=== PATIENT | male | born 2000 | race Two or more races ===

== ENCOUNTER 2024-09-26 17:02 | Emergency (ER) | payer MEDICAID, SELFPAY ==
[2024-09-26 17:25] VITALS: BP 133/80; PULSE 65; RESP 18; TEMP 36.6; O2SAT 99; BMI 27.3
--- NOTE | 2024-09-26 17:37 | XR_ITS ---
Examination: Abdomen sonogram, Limited Date and time of exam: September 26, 2024 1747 hrs. Indications: Epigastric pain beginning one month ago Technique: Real-time humphries scale transabdominal sonographic images of the upper abdomen obtained. Findings: Normal gallbladder Normal common bile duct 0.4 cm Pancreatic head 2.4 cm Liver 12.6 cm fatty infiltration no focal liver lesions Normal hepatopedal portal venous flow Patent IVC Impression: Normal gallbladder Mild hepatomegaly fatty liver
--- NOTE | 2024-09-26 17:38 | PD.EDRME ---
Rapid Medical Screening Exam RME Arrival date/time: 09/26/24 17:02 23-year-old male reports with complaints of epigastric abdominal pain for several weeks Chief Complaint: Abdominal Pain Time Seen by Provider: 09/26/24 17:05 Vital signs: Vital Signs Temperature 97.8 F 09/26/24 17:25 Pulse Rate 65 09/26/24 17:25 Respiratory Rate 18 09/26/24 17:25 Blood Pressure 133/80 H 09/26/24 17:25 Pulse Oximetry (%) 99 09/26/24 17:25 Oxygen Delivery Method Room Air 09/26/24 17:25
[2024-09-26 18:36] LABS: Basophils % (Auto) 0 % (0-2.5); Eosinophils # (Auto) 0.1 Thou/mm3 (0.0-0.5); Eosinophils % (Auto) 1 % (0-10); Hematocrit 46.5 % (41.0-53.0); Hemoglobin 15.2 g/dL (13.5-16.0); Immature Granulocytes % (Auto) 0 % (0-0); Immature Granulocytes Auto 0.01 Thou/mm3 (0.00-0.00); Lymphocytes # (Auto) 2.5 Thou/mm3 (1.0-4.8); Lymphocytes % (Auto) 32 % (10-50); Mean Corpuscular HGB Conc 32.7 g/dl (31.0-37.0); Mean Corpuscular Hemoglobin 26.7 pg (25.0-35.0); Mean Corpuscular Volume 82 fL (80-100); Monocytes # (Auto) 0.4 Thou/mm3 (0.0-0.8); Monocytes % (Auto) 5 % (0-12); Neutrophils # (Auto) 4.9 Thou/mm3 (1.8-7.7); Neutrophils % (Auto) 61 % (37-80); Nucleated Red Blood Cell % 0 /100 WBC (0); Platelet Count 289 Thou/mm3 (140-440); RDW Standard Deviation 40.2 fL (35.1-43.9); Red Blood Count 5.69 Miln/mm3 (4.50-5.90)
[2024-09-26 18:58] LABS: Alanine Aminotransferase 10 U/L (10-49); Albumin, Serum 4.8 gm/dL (3.5-5.0); Albumin/Globulin Ratio 1.5 (1.2-2.2); Alkaline Phosphatase 89 U/L (46-116); Anion Gap 8 (7-16); Aspartate Amino Transferase 18 U/L (0-34); BUN/Creatinine Ratio 15 Ratio (12-20); Bilirubin,Total 0.4 mg/dL (0.3-1.2); Blood Urea Nitrogen 12 mg/dL (9-23); Calcium 9.6 mg/dL (8.3-10.6); Calcium (Corrected) 9.6 mg/dL (8.5-10.1); Carbon Dioxide 27.1 mMol/L (20.0-31.0); Chloride 106 mMol/L (98-107); Creatinine (Component) 0.8 mg/dL (0.6-1.3); Estimated Creatinine Clearance 147.5 mL/min (>60); Globulin 3.3 gm/dL (2.3-3.5); Glucose 95 mg/dL (74-106); Lipase 34 U/L (12-53); Osmolality,Calculated 280 (275-295); Potassium 3.6 mMol/L (3.4-5.1); Sodium 141 mMol/L (136-145); Total Protein 8.1 gm/dL (5.7-8.2); eGFR > 60 See Note
[2024-09-26] MEDS: KETOROLAC INJ 60 MG/2 ML VIAL 30 MG IM (20:18)
[2024-09-26 20:44] LABS: Collection Type, Urine Clean Catch; Squamous Epithelial Cell,Urine 0 /hpf (0-5)
[2024-09-26 20:48] LABS: Bilirubin,Urine Negative (Negative); Blood,Urine Negative (Negative); Clarity,Urine Clear (Clear/Hazy); Color,Urine Lt-Yellow (Lt Yel-Yel); Culture Indicated,Urine Not Indicated; Glucose, Urine Negative (Negative); Ketones,Urine Negative (Negative); Leukocyte Esterase,Urine Negative (Negative); Nitrite,Urine Negative (Negative); PH,Urine 5.5 (5.0-7.0); Protein,Urine Negative (Neg - Trace); RBC,Urine 4 /hpf (0-3); Specific Gravity,Urine 1.023 (1.001-1.035); Urobilinogen,Urine Negative mg/dL (0.0-1.0); WBC,Urine 8 /hpf (0-5)
[2024-09-26 21:08] VITALS: BP 129/84; PULSE 67; RESP 17; TEMP 36.9; O2SAT 99
--- NOTE | 2024-09-26 21:11 | EDNOTE_ITS ---
ED Abdominal Pain RME/HPI General Chief Complaint: Abdominal Pain Stated complaint: ABD PAIN FOR MANY YEARS, TODAY IS WORSE Time seen by provider: 09/26/24 17:05 Arrival date/time: 09/26/24 17:02 23-year-old male with no significant past medical history other than everyday smoker presents emergency department complaining of intermittent diffuse abdominal pain that he has had for several years but reports today in the morning was severe and prompted him to come in. Patient denies any fever, chills, vomiting, diarrhea, or any other associated symptom. Source: patient Mode of arrival: ambulatory Limitations: no limitations RME / HPI RME / HPI narrative: 09/26/24 17:02 23-year-old male reports with complaints of epigastric abdominal pain for several weeks Related Data Previous Rx's ?Medication ?Instructions ?Recorded acetaminophen 500 mg capsule 500 mg PO Q6H PRN pain #3 0 caps 09/26/24 Allergies Allergy/AdvReac Type Severity Reaction Status Date / Time No Known Allergies Allergy Verified 09/26/24 17:06 Review of Systems Review of Systems Systems Reviewed: All systems reviewed, normal except as documented Constitutional Constitutional: Reports system reviewed and no additional complaints, except as documented, Denies body ache(s), Denies chills and Denies fever(s) Eyes Eyes: Reports system reviewed and no additional complaints, except as documented and Denies change in vision ENT Ears, Nose, Mouth, and Throat: Reports system reviewed and no additional complaints, except as documented, Denies disequilibrium, Denies dizziness, Denies sore throat and Denies vertigo Cardiovascular Cardiovascular: Reports system reviewed and no additional complaints, except as documented, Denies chest pain and Denies dyspnea Respiratory Respiratory: Reports system reviewed and no additional complaints, except as documented, Denies chest congestion, Denies cough and Denies dyspnea Gastrointestinal Gastrointestinal: Reports system reviewed and no additional complaints, except as documented, Reports abdominal pain, Denies nausea and Denies vomiting Musculoskeletal Musculoskeletal: Reports system reviewed and no additional complaints, except as documented, Denies abnormal gait and Denies arthralgias Integumentary/Breasts Skin/Breast: Reports system reviewed and no additional complaints, except as documented, Denies erythema, Denies rash and Denies wounds Neurologic Neurologic: Reports system reviewed and no additional complaints, except as documented, Denies abnormal gait, Denies disequilibrium, Denies dizziness and Denies vertigo Past Medical History Social History SMOKING STATUS: Current every day smoker ED Exam General Limitations: Present no limitations General appearance: Present alert and in no apparent distress Head Head exam: Present atraumatic Eye Eye exam: Present normal appearance, PERRL and EOMI ENT ENT exam: Present normal exam, normal oropharynx and mucous membranes moist Neck Neck exam: Present normal inspection, full ROM and trachea midline Chest Chest inspection: Present normal inspection and symmetric chest wall rise Respiratory Respiratory exam: Present normal lung sounds bilaterally Cardiovascular Cardiovascular exam: Present regular rate, normal rhythm and normal heart sounds Abdominal Exam Abdominal exam: Present soft and normal bowel sounds; Absent tenderness, guarding, Lee's sign or tenderness at McBurney's Point Extremities Exam Extremities exam: Present normal inspection and full ROM Back Exam Back exam: Present normal inspection and full ROM Neurological Exam Neurological exam: Present alert, oriented X3 and CN II-XII intact Psychiatric Psychiatric exam: Present normal affect and normal mood Skin Skin exam: Present warm, dry, intact and normal color Course Quality Measures none Orders Category Date Time Status US abdomen limited Stat Exams 09/26/24 17:37 Completed CBC Stat Lab 09/26/24 17:59 Completed CMP [Comprehensive Metabolic Panel] Stat Lab 09/26/24 17:59 Completed Lipase Stat Lab 09/26/24 17:59 Completed UA, C/S IF [Urinalysis, C/S if Indicated] Stat Lab 09/26/24 20:19 Completed Ketorolac Inj [Toradol Inj] Med 09/26/24 18:49 Discontinued 30 mg IM X1 ONE Vital Signs Vital signs: Vital Signs Temperature 97.8 F 09/26/24 17:25 Pulse Rate 65 09/26/24 17:25 Respiratory Rate 18 09/26/24 17:25 Blood Pressure 133/80 H 09/26/24 17:25 Pulse Oximetry (%) 99 09/26/24 17:25 Oxygen Delivery Method Room Air 09/26/24 17:25 99% RA WNL Abdominal Pain MDM MDM Narrative MDM Narrative:: 23-year-old male with no significant past medical history other than everyday smoker presents emergency department complaining of intermittent diffuse abdominal pain that he has had for several years but reports today in the morning was severe and prompted him to come in. Patient denies any fever, chills, vomiting, diarrhea, or any other associated symptom. CBC was unremarkable for any leukocytosis. CMP was unremarkable for any elevated LFTs or gross electro abnormalities. Ultrasound of abdomen was unremarkable as well. At time of exam patient is abdomen soft no tenderness at McBurney's point and negative Lee sign. Patient reports pain medication is completely resolved symptoms. Patient stable for discharge directed to follow-up with primary care provider return to emergency department for any worsening symptoms or as needed. Patient data External records reviewed:: None Clinical information provided by:: patient Social determinants that could affect healthcare access:: none Patient has the following chronic illnesses:: none How is presenting disease/condition affected by chronic disease/condition?: no chronic disease Evaluation data The following diagnostics were reviewed and interpreted by me:: lab results and radiology exam(s) Lab and/or radiology exams considered but not ordered:: Ordered Interpretation Summary: Interpreted by me Medications / Prescriptions Medications or Prescriptions considered but not ordered:: Ordered Medication administrations:: Medication Administration History Discontinued Medications Ketorolac Tromethamine (Ketorolac Inj 60 Mg/2 Ml Vial) 30 mg IM X1 ONE Stop: 09/26/24 18:50 Last Admin: 09/26/24 20:18 Dose: 30 mg Documented By: KG Give Consultations Consultation(s) initiated? (list below): No Diagnosis Differential diagnosis abdominal pain: abdominal pain, acute appendicitis, calculus of kidney, constipation, diverticulitis, endometriosis, gastroenteritis, pancreatitis and small bowel obstruction Most likely diagnosis given after review of the tests above:: Abdominal pain Admission Indicated Admission indicated?: not indicated Admission Request Was there a request for admission?: No Disposition Plan Disposition Plan: Discharge Discharge Attestation Discharge Attestation: The patient and all family members were given an opportunity to ask questions and understood the discharge instructions. Discharge instructions specifically effects, indications for sooner follow up or return to the emergency department, and the expected course of current diagnosis. Patient condition: Stable Discharge Plan Plan Patient Disposition: HOME (Self Care) Disposition Comment: Stable Prescriptions/Referrals Prescriptions/Med Rec: New acetaminophen 500 mg capsule 500 mg PO Q6H PRN (Reason: pain) Qty: 30 0RF Referrals: Dandy Dominguez MD [Primary Care Provider] - In 1 week Problem List Clinical Impression: Abdominal pain Patient/Caregiver Discharge Instructions Discharge Activity: activity as tolerated Education Materials: Abdominal Pain Additional Instructions: Plenty of fluids and stay hydrated. Take Tylenol as needed for pain. Avoid smoking cigarettes. Follow-up with primary care provider in 2 to 3 days and request H. pylori testing or referral to GI specialist if symptoms persist. Return to emergency department for any worsening symptoms or as needed. Print Language: Citizen Of [place] Stand Alone Forms: Michelle Award Info., Patient Portal Info Letter PA/PHYSICS INSTRUCTOR Supervising Physician PA/PHYSICS INSTRUCTOR Supervising Physician: Dr. Peoples
--- NOTE | 2024-09-26 21:40 | PC.NURSE ---
CALLED PATIENT IN LOBBY AND OUTSIDE, NO ANSWER RECEIVED.
--- NOTE | 2024-09-26 21:43 | PC.NURSE ---
PATIENT WALKED OUT ER PER SECURITY WITHOUT D/C PAPERS.
== END 2024-09-26 22:02 | disposition home or self-care (01) ==
PROVIDERS: Physician Assistant; Emergency Provider Emergency Medicine; PCP Family Medicine
DX: R10.13 Epigastric pain (principal); F17.210 Nicotine dependence, cigarettes, uncomplicated
CPT/HCPCS: 36415; 76705; 80053; 80307; 81001; 83690; 85025; 96372; 99284; J1885